=== PATIENT | female | born 1970 | race Hispanic/Latino ===

== ENCOUNTER 2022-09-03 11:40 | Inpatient (IN) | payer SELFPAY ==
[~2022-09-03] VITALS: Ht 165.1 cm; Wt 71.7 kg
[2022-09-03] MEDS ORDERED: ONDANSETRON HCL INJ 2MG/ML 2ML 2 MG/ML VIAL IV STA ×2 (12:02→17:45)
[2022-09-03] MEDS ORDERED: KETOROLAC TROMETHAMINE 30 MG/ML VIAL IV STA (12:02)
[2022-09-03] MEDS ORDERED: PROPOFOL IV EMULSION 10 MG/ML 20 ML VIAL ONE ×2 (12:23→13:25)
[2022-09-03] MEDS ORDERED: LIDOCAINE HCL 2% LOCAL INJ 5 ML SDV VIAL INJ ONE (13:25)
[2022-09-03] MEDS ORDERED: GLYCOPYRROLATE INJ 0.2 MG/ML VIAL ONE (13:25)
[2022-09-03] MEDS ORDERED: ONDANSETRON HCL INJ 2MG/ML 2ML 2 MG/ML VIAL ONE ×3 (13:25→17:57)
[2022-09-03] MEDS ORDERED: NEOSTIGMINE 1 MG/ML 10ML VIAL ONE (13:25)
[2022-09-03] MEDS ORDERED: POVIDONE IODINE 0.05% 0.05 % ML PO ONE (13:25)
[2022-09-03] MEDS ORDERED: KETOROLAC TROMETHAMINE 30 MG/ML VIAL ONE ×2 (13:25→15:58)
[2022-09-03] MEDS ORDERED: SEVOFLURANE INHAL SOLN 250 ML PEN BTL ONE (13:25)
[2022-09-03] MEDS ORDERED: DEXAMETHASONE SOD PHOS INJ 4 MG/ML SDV ONE (13:25)
[2022-09-03] MEDS ORDERED: METOCLOPRAMIDE HCL 10 MG/2ML VIAL ONE (13:25)
[2022-09-03] MEDS ORDERED: ROCURONIUM BROMIDE 10 MG/ML 5ML VIAL IV ONE (13:25)
[2022-09-03 13:31] LABS: CLARITY,URINE CLEAR (CLEAR); COLOR,URINE COLORLESS (YELLOW)
[2022-09-03 13:32] LABS: KETONES,URINE NEGATIVE (NEGATIVE); LEUKOCYTE ESTERASE ,URINE NEGATIVE (NEGATIVE); NITRITE,URINE NEGATIVE (NEGATIVE); PROTEIN,URINE DIPSTICK NEGATIVE (NEGATIVE); URINE UROBILINOGEN 0.2 mg/dL (0.2 - 1)
[2022-09-03 13:42] LABS: EPITHELIAL CELLS,URINE RARE /LPF; RBC,URINE 0-5 /HPF (0-5); WBC,URINE (MAN) 0-5 /HPF (0-5)
[2022-09-03 13:56] LABS: BASOPHILS # (AUTO) 0.1 (0.0-0.1); BASOPHILS % 0.4 % (0.0-1.0); EOSINOPHILS # (AUTO) 0.1 (0.0-0.4); EOSINOPHILS % 0.9 % (0.0-6.0); HEMATOCRIT 41.9 % (34.2-44.1); LYMPHOCYTES # (AUTO) 1.7 (1.0-3.2); LYMPHOCYTES % 13.8 % (18.0-39.1); MEAN CORPUSCULAR HEMOGLOBIN 31.4 pg (28-32); MEAN CORPUSCULAR VOLUME 101.2 fL (81-99); MONOCYTES # (AUTO) 0.8 (0.2-0.8); MONOCYTES % 6.3 % (4.4-11.3); NEUTROPHILS # (AUTO) 9.6 (2.1-6.9); NEUTROPHILS % 78.1 % (38.7-80.0); PLATELET COUNT 270 x10e3/uL (140-360); RED BLOOD COUNT 4.14 x10e6/uL (3.6-5.1)
[2022-09-03 14:22] LABS: ALBUMIN 3.3 g/dL (3.5-5.0); ALBUMIN/GLOBULIN RATIO 0.7 (0.8-2.0); ANION GAP 16.2 mmol/L (8-16); CALCIUM 10.2 mg/dL (8.4-10.2); CREATININE, SERUM 0.63 mg/dL (0.57-1.11); POTASSIUM 4.2 mmol/L (3.5-5.1)
[2022-09-03] MEDS ORDERED: IOPAMIDOL 370 MG/ML 100 ML INFUS..BTL INJ ONE (14:49)
[2022-09-03] MEDS ORDERED: SODIUM CHLORIDE 0.9% 1000ML 1,000 ML IV ONE (15:45)
[2022-09-03] MEDS ORDERED: SODIUM CHLORIDE 0.9% 1000ML 1,000 ML ONE (15:59)
[2022-09-03] MEDS ORDERED: METRONIDAZOLE 500MG/NS 100ML 100 ML IV ONE ×3 (17:45→17:58)
[2022-09-03] MEDS ORDERED: PIPERACILLIN/TAZOBACTAM 3.375 GM VIAL ONE (17:57)
[2022-09-03] MEDS: METRONIDAZOLE 500MG/NS 100ML 100 ML IV SCH (18:00)
[2022-09-03] MEDS ORDERED: ONDANSETRON HCL INJ 2MG/ML 2ML 2 MG/ML VIAL IV PRN (18:00)
[2022-09-03] MEDS: SODIUM CHLORIDE 0.9% 1000ML 1,000 ML IV SCH ×3 (18:00→18:08)
[2022-09-03] MEDS ORDERED: Morphine 4mg INJECTION 4 MG/ML INJ IV PRN (18:00)
[2022-09-03] MEDS ORDERED: FENTANYL CITRATE/PF 100MCG/2 ML INJ ONE (20:06)
[2022-09-03] MEDS: Morphine 4mg INJECTION 4 MG/ML INJ IV PRN (20:15)
[2022-09-03] MEDS: ONDANSETRON HCL INJ 2MG/ML 2ML 2 MG/ML VIAL IV PRN (20:45)
[2022-09-03 23:44] VITALS: BP 104/68
[2022-09-04] VITALS (8 sets, daily range): BP systolic 94–117; BP diastolic 60–81
[2022-09-04] MEDS ORDERED: SODIUM CHLORIDE 0.9% 1000ML 1,000 ML IV SCH
[2022-09-04] MEDS: SODIUM CHLORIDE 0.9% 1000ML 1,000 ML IV SCH ×3 (00:03→17:48)
[2022-09-04] MEDS: METRONIDAZOLE 500MG/NS 100ML 100 ML IV SCH ×4 (05:42→23:35)
[2022-09-04 05:57] LABS: BASOPHILS % 0.3 % (0.0-1.0); EOSINOPHILS # (AUTO) 0.1 (0.0-0.4); EOSINOPHILS % 0.8 % (0.0-6.0); HEMATOCRIT 37.3 % (34.2-44.1); HEMOGLOBIN 11.8 g/dL (12.0-16.0); LYMPHOCYTES # (AUTO) 1.5 (1.0-3.2); LYMPHOCYTES % 13.6 % (18.0-39.1); MEAN CORPUSCULAR HEMOGLOBIN 31.5 pg (28-32); MEAN CORPUSCULAR HGB CONC 31.6 g/dL (31-35); MEAN CORPUSCULAR VOLUME 99.5 fL (81-99); MONOCYTES # (AUTO) 0.8 (0.2-0.8); MONOCYTES % 7.5 % (4.4-11.3); NEUTROPHILS # (AUTO) 8.6 (2.1-6.9); NEUTROPHILS % 77.3 % (38.7-80.0); PLATELET COUNT 333 x10e3/uL (140-360); RED BLOOD COUNT 3.75 x10e6/uL (3.6-5.1); RED CELL DISTRIBUTION WIDTH 11.8 % (11.7-14.4)
[2022-09-04 06:18] LABS: ANION GAP 15.3 mmol/L (8-16); CALCIUM 9.3 mg/dL (8.4-10.2); CREATININE, SERUM 0.69 mg/dL (0.57-1.11); POTASSIUM 4.3 mmol/L (3.5-5.1)
[2022-09-04] MEDS ORDERED: BUPIVACAINE 0.5%/EPI 30 ML SDV INJ ONE (10:15)
[2022-09-04] MEDS ORDERED: Morphine 2mg Syringe 2 MG/ML SYR ONE (12:39)
[2022-09-04] MEDS: FAMOTIDINE 20 MG/2 ML VIAL IV SCH (16:15)
[2022-09-05] VITALS (7 sets, daily range): BP systolic 93–121; BP diastolic 61–69
[2022-09-05] MEDS: SODIUM CHLORIDE 0.9% 1000ML 1,000 ML IV SCH ×3 (02:00→16:46)
[2022-09-05] MEDS: ONDANSETRON HCL INJ 2MG/ML 2ML 2 MG/ML VIAL IV PRN (03:29)
[2022-09-05] MEDS: METRONIDAZOLE 500MG/NS 100ML 100 ML IV SCH ×4 (05:54→22:35)
[2022-09-05] MEDS: FAMOTIDINE 20 MG/2 ML VIAL IV SCH ×2 (07:54→16:32)
[2022-09-05] MEDS: ALPRAZOLAM 0.25 MG TAB PO PRN ×2 (13:03→21:21)
[2022-09-05] MEDS ORDERED: MELATONIN 3 MG TAB PO PRN (18:30)
[2022-09-06] VITALS (8 sets, daily range): BP systolic 107–122; BP diastolic 65–76
[2022-09-06] MEDS: SODIUM CHLORIDE 0.9% 1000ML 1,000 ML IV SCH ×4 (03:38→23:35)
[2022-09-06 05:02] LABS: BASOPHILS % 0.5 % (0.0-1.0); EOSINOPHILS # (AUTO) 0.1 (0.0-0.4); HEMATOCRIT 29.1 % (34.2-44.1); HEMOGLOBIN 9.7 g/dL (12.0-16.0); LYMPHOCYTES # (AUTO) 1.8 (1.0-3.2); LYMPHOCYTES % 22.4 % (18.0-39.1); MEAN CORPUSCULAR HEMOGLOBIN 31.7 pg (28-32); MEAN CORPUSCULAR HGB CONC 33.3 g/dL (31-35); MONOCYTES # (AUTO) 0.5 (0.2-0.8); NEUTROPHILS # (AUTO) 5.6 (2.1-6.9); NEUTROPHILS % 67.8 % (38.7-80.0); PLATELET COUNT 349 x10e3/uL (140-360); RED BLOOD COUNT 3.06 x10e6/uL (3.6-5.1); RED CELL DISTRIBUTION WIDTH 12.6 % (11.7-14.4)
[2022-09-06 05:05] LABS: MEAN CORPUSCULAR VOLUME 95.1 fL (81-99)
[2022-09-06] MEDS: METRONIDAZOLE 500MG/NS 100ML 100 ML IV SCH ×4 (05:09→23:35)
[2022-09-06 05:18] LABS: ANION GAP 13.2 mmol/L (8-16); BLOOD UREA NITROGEN < 5 mg/dL (7-26); CALCIUM 8.5 mg/dL (8.4-10.2); CARBON DIOXIDE 23 mmol/L (22-29); CHLORIDE 109 mmol/L (98-107); GLUCOSE 109 mg/dL (74-118); SODIUM 142 mmol/L (136-145)
[2022-09-06 05:20] LABS: BUN/CREATININE RATIO 8 (6-25); POTASSIUM 3.2 mmol/L (3.5-5.1)
[2022-09-06] MEDS ORDERED: POTASSIUM CHLORIDE 20 MEQ TAB CR PO ONE (07:30)
[2022-09-06 08:37] LABS: EOSINOPHILS % (MANUAL) 1 % (0-7); LYMPHOCYTES % (MANUAL) 26 % (19-48); MONOCYTES % (MANUAL) 3 % (3.4-9.0); MYELOCYTES % (MANUAL) 1 % (0-0); NEUTROPHILS % (MANUAL) 69 % (40-74); PLATELET ESTIMATE ADEQUATE; PLATELET MORPHOLOGY COMMENT NORMAL; RBC MORPHOLOGY COMMENT NORMAL
[2022-09-06] MEDS: FAMOTIDINE 20 MG/2 ML VIAL IV SCH ×2 (09:20→17:06)
[2022-09-07] MEDS: Morphine 4mg INJECTION 4 MG/ML INJ IV PRN (03:21)
[2022-09-07 04:00] VITALS: BP 122/84
[2022-09-07] MEDS: METRONIDAZOLE 500MG/NS 100ML 100 ML IV SCH ×3 (06:27→16:40)
[2022-09-07 07:20] LABS: BASOPHILS % 0.5 % (0.0-1.0); EOSINOPHILS # (AUTO) 0.1 (0.0-0.4); EOSINOPHILS % 1.2 % (0.0-6.0); HEMATOCRIT 33.6 % (34.2-44.1); HEMOGLOBIN 11.2 g/dL (12.0-16.0); LYMPHOCYTES # (AUTO) 2.4 (1.0-3.2); LYMPHOCYTES % 31.8 % (18.0-39.1); MEAN CORPUSCULAR HEMOGLOBIN 31.5 pg (28-32); MEAN CORPUSCULAR HGB CONC 33.3 g/dL (31-35); MEAN CORPUSCULAR VOLUME 94.6 fL (81-99); MONOCYTES # (AUTO) 0.5 (0.2-0.8); MONOCYTES % 6.8 % (4.4-11.3); NEUTROPHILS # (AUTO) 4.3 (2.1-6.9); NEUTROPHILS % 57.6 % (38.7-80.0); PLATELET COUNT 402 x10e3/uL (140-360); RED BLOOD COUNT 3.55 x10e6/uL (3.6-5.1); RED CELL DISTRIBUTION WIDTH 12.6 % (11.7-14.4)
[2022-09-07 07:37] LABS: ANION GAP 13.8 mmol/L (8-16); BLOOD UREA NITROGEN < 5 mg/dL (7-26); CALCIUM 8.9 mg/dL (8.4-10.2); CARBON DIOXIDE 24 mmol/L (22-29); CHLORIDE 108 mmol/L (98-107); CREATININE, SERUM 0.61 mg/dL (0.57-1.11); GLUCOSE 94 mg/dL (74-118); POTASSIUM 3.8 mmol/L (3.5-5.1); SODIUM 142 mmol/L (136-145)
[2022-09-07 07:44] LABS: BUN/CREATININE RATIO 8 (6-25)
[2022-09-07 07:48] VITALS: BP 172/71
[2022-09-07 07:50] VITALS: BP 172/71
[2022-09-07] MEDS: SODIUM CHLORIDE 0.9% 1000ML 1,000 ML IV SCH ×2 (08:31→23:20)
[2022-09-07] MEDS: FAMOTIDINE 20 MG/2 ML VIAL IV SCH ×2 (08:31→16:38)
[2022-09-07 09:36] LABS: EOSINOPHILS % (MANUAL) 3 % (0-7); LYMPHOCYTES % (MANUAL) 19 % (19-48); MONOCYTES % (MANUAL) 10 % (3.4-9.0); MYELOCYTES % (MANUAL) 1 % (0-0); NEUTROPHILS % (MANUAL) 62 % (40-74); PLATELET ESTIMATE ADEQUATE; PLATELET MORPHOLOGY COMMENT NORMAL; RBC MORPHOLOGY COMMENT NORMAL
[2022-09-07 11:09] VITALS: BP 110/78
[2022-09-07] MEDS: ONDANSETRON HCL INJ 2MG/ML 2ML 2 MG/ML VIAL IV PRN (16:37)
[2022-09-07 20:10] VITALS: BP 110/78
[2022-09-07 20:48] VITALS: BP 117/69
[2022-09-08] MEDS: METRONIDAZOLE 500MG/NS 100ML 100 ML IV SCH ×4 (00:38→17:48)
[2022-09-08 00:56] VITALS: BP 108/75
[2022-09-08] MEDS: SODIUM CHLORIDE 0.9% 1000ML 1,000 ML IV SCH ×3 (02:00→17:50)
[2022-09-08 04:00] VITALS: BP 114/78
[2022-09-08 08:14] VITALS: BP 116/74
[2022-09-08] MEDS: FAMOTIDINE 20 MG/2 ML VIAL IV SCH ×2 (08:58→17:00)
[2022-09-08 09:00] VITALS: BP 116/74
[2022-09-08] MEDS ORDERED: DOCUSATE SODIU100 MG PO (12:05)
[2022-09-08] MEDS ORDERED: CEPHALEXIN500 MG PO (12:05)
[2022-09-08] MEDS ORDERED: ONDANSETRON ODT4 MG PO (12:05)
[2022-09-08] MEDS ORDERED: METRONIDAZOLE250 MG PO (12:05)
[2022-09-08] MEDS ORDERED: SENNA LAX8.6 MG PO (12:05)
[2022-09-08 12:49] VITALS: BP 107/76
[2022-09-08 16:36] VITALS: BP 120/74
== END 2022-09-08 18:44 | disposition home or self-care (01) | DRG 340 ==
LOC: ER 11:55 → ERHOLD 17:56 → MED/SURG 23:05
PROVIDERS: ADMIT Internal Medicine; ATTEND Internal Medicine
PROC: 0W9G40Z Drainage of Peritoneal Cavity with Drainage Device, Percutaneous Endoscopic Approach (ICD-10-PCS; 2022-09-04)
PROC: 0DTJ4ZZ Resection of Appendix, Percutaneous Endoscopic Approach (ICD-10-PCS; principal; 2022-09-04 10:05)
DX: K35.33 Acute appendicitis with perforation, localized peritonitis, and gangrene, with abscess (principal); K44.9 Diaphragmatic hernia without obstruction or gangrene; E86.0 Dehydration; E87.6 Hypokalemia; Z20.822 Contact with and (suspected) exposure to COVID-19
CPT/HCPCS: 0223U; 36415; 74177; 80048; 80053; 81001; 85025; 88304; 99252; 99284; J1100; J1885; J2001; J2270; J2405; J2543; J2710; J2765; J3010; J7030; Q9967